=== PATIENT | female | born 1985 | race Caucasian/White ===

== ENCOUNTER 2016-11-08 22:33 | Emergency (ER) | payer OTHER ==
[2016-11-08 22:46] VITALS: BP 157/99; PULSE 78; BMI 24.1
[2016-11-08] MEDS ORDERED: IBUPROFEN 600 MG TABLET (FP) PO STA (23:23)
--- NOTE | 2016-11-08 23:25 | PDOC ---
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 The patient reports she does not know what she hit her knees on during the incident. She states she initially felt no pain due to the adrenaline [place]. However, 30 minutes after the incident her knee pain began to gradually build up. The patient reports she has always been able to bare weight on her lower extremities. She denies any loss of sensation or decreased range of motion to her feet. She denies any edema to the knees. The patient denies any other trauma or LOC. The patient denies chest pain, diaphoresis, palpitations, or shortness of breath. The patient denies any fever, chills, cough, headache, or dizziness. Allergies: NKDA Past Surgical History: None reported. Social History: Former smoker. Social ETOH use. Denies drug use. <Kristi Paniagua - Last Filed: 11/08/16 23:55> - General Chief Complaint: Injury Stated Complaint: R KNEE INJURY/[facility] Time Seen by Provider: 11/08/16 23:23 Past History - Past Medical History Suicide Attempt (Hx): No - Surgical History Appendectomy: Yes - Immunization History Immunization Up to Date: No - Psycho/Social/Smoking Cessation Hx Anxiety: No Suicidal Ideation: No Smoking History: Former smoker Have you smoked in the past 12 months: No Number of Cigarettes Smoked Daily: 10 Information on smoking cessation initiated: No Hx Alcohol Use: Yes (OCCASIONALLY) Drug/Substance Use Hx: No Substance Use Type: Alcohol <Flex Cervantes - Last Filed: 11/08/16 23:23> <Kristi Paniagua - Last Filed: 11/08/16 23:55> - Past Medical History Allergies/Adverse Reactions: Allergies Allergy/AdvReac Type Severity Reaction Status Date / Time No Known Allergies Allergy Verified 11/08/16 22:43 Home Medications: Ambulatory Orders Levonorgestrel-Ethin Estradiol [Altavera] 1 each PO DAILY 02/09/17 Review of Systems - Review of Systems Able to Perform ROS?: Yes Comments:: 11/08/16 23:53 CONSTITUTIONAL: Absent: fever, no chills, no fatigue EYES: Absent: visual changes ENT: Absent: ear pain, no sore throat CARDIOVASCULAR: Absent: chest pain, no palpitations RESPIRATORY: Absent: cough, no SOB GI: Absent: abdominal pain, no nausea, no vomiting, no constipation, no diarrhea GENITOURINARY: Absent: dysuria, no frequency, no hematuria MUSKULOSKELETAL: Present: +bilateral knee pain Absent: back pain, no arthralgia, no myalgia SKIN: Absent: rash NEURO: Absent: headache <Kristi Paniagua - Last Filed: 11/08/16 23:55> *Physical Exam - Vital Signs Last Vital Signs Temp Pulse Resp BP Pulse Ox 78 18 157/99 96 11/08/16 22:44 11/08/16 22:44 11/08/16 22:44 11/08/16 22:44 <Flex Cervantes - Last Filed: 11/08/16 23:23> - Vital Signs Last Vital Signs Temp Pulse Resp BP Pulse Ox 78 18 157/99 96 11/08/16 22:44 11/08/16 22:44 11/08/16 22:44 11/08/16 22:44 - Physical Exam Comments: 11/08/16 23:54 GENERAL: Well-appearing, well-nourished. No apparent distress. HEENT: Normocephalic, atraumatic. PERRL, EOM intact. CARDIOVASCULAR: Normal S1, S2. Regular rate and rhythm. Distal pulses are 2+ and symmetric. PULMONARY: Clear to auscultation bilaterally. ABDOMEN: Soft, non-distended, non-tender. MUSCULOSKELETAL: Small abrasion to the left knee. Mild tenderness 2 cm inferior to the patella bilaterally. Anterior/Posterior drawers test negative. Varus and valgus stress test elicits no pain. Patient retains full range of motion at the knee and rankle bilaterally. EXTREMITIES: Normal ROM in all four extremities. No gross deformities. SKIN: Warm, dry. No rash NEUROLOGICAL: No focal neurological deficits. <Kristi Paniagua - Last Filed: 11/08/16 23:55> ED Treatment Course - Medications Given in the ED: ED Medications Discontinued Medications Generic Name Dose Route Start Last Admin Trade Name Gino PRN Reason Stop Dose Admin Ibuprofen 600 mg 11/08/16 23:23 11/08/16 23:37 Motrin - PO 11/08/16 23:24 600 mg ONCE STA Administration <Kristi Paniagua - Last Filed: 11/08/16 23:55> Medical Decision Making - Medical Decision Making 11/08/16 23:24 Dr. Cervantes: The scribe's documentation has been prepared under my direction and personally reviewed by me in its entirery. I confirm that the note above accurately reflects all work, treatment, procedures, and medical decision making performed by me. <Flex Cervantes - Last Filed: 11/08/16 23:23> *DC/Admit/Observation/Transfer - Discharge Dispostion Admit: No <Flex Cervantes - Last Filed: 11/08/16 23:23> - Attestations Scribe Attestion: 11/08/16 23:55 Documentation prepared by Kristi Paniagua, acting as medical receptionist for Flex Cervantes DO. <Kristi Paniagua - Last Filed: 11/08/16 23:55> Diagnosis at time of Disposition: Knee sprain, bilateral Knee contusion Qualifiers: Encounter type: initial encounter Laterality: unspecified laterality Qualified Code(s): S80.00XA - Contusion of unspecified knee, initial encounter - Discharge Dispostion Disposition: HOME Condition at time of disposition: Stable - Patient Instructions Printed Discharge Instructions: DI for Knee Sprain
[2016-11-08] MEDS ORDERED: IBUPROFEN 600 MG TABLET (FP) PO ONE (23:29)
== END 2016-11-08 23:31 | disposition home or self-care (01) ==
LOC: JER 22:33
DX: S83.8X2A Sprain of other specified parts of left knee, initial encounter (principal); S83.8X1A Sprain of other specified parts of right knee, initial encounter; S80.02XA Contusion of left knee, initial encounter; S80.01XA Contusion of right knee, initial encounter; Y35.811A Legal intervention involving manhandling, law enforcement official injured, initial encounter; Y93.89 Activity, other specified; Y92.89 Other specified places as the place of occurrence of the external cause; Y99.0 Civilian activity done for income or pay
CPT/HCPCS: 99281-25

== ENCOUNTER 2017-05-12 08:43 | Emergency (ER) | payer OTHER ==
[2017-05-12 08:49] VITALS: BP 148/92; PULSE 78; TEMP 97.7; BMI 23.3
--- NOTE | 2017-05-12 09:04 | PDOC ---
History of Present Illness - General Chief Complaint: Injury Stated Complaint: finger injury Time Seen by Provider: 05/12/17 08:55 History Source: Patient Exam Limitations: No Limitations - History of Present Illness Initial Comments: 05/12/17 08:59 32 yr female with injury to right middle finger yesterday at work. Pt states she fell while running and cut her finger in the dirt/ground. Pt c/o pain to the finger with swelling. tetanus is UTD. Occurred: reports: yesterday Severity: reports: mild Pain Location: reports: upper extremity (right middle digit) Past History - Past Medical History Allergies/Adverse Reactions: Allergies Allergy/AdvReac Type Severity Reaction Status Date / Time No Known Allergies Allergy Verified 05/12/17 08:49 Home Medications: Ambulatory Orders Levonorgestrel-Ethin Estradiol [Altavera] 1 each PO DAILY 11/08/16 Suicide Attempt (Hx): No Other medical history: denies - Surgical History Appendectomy: Yes - Immunization History Immunization Up to Date: No - Psycho/Social/Smoking Cessation Hx Anxiety: No Suicidal Ideation: No Smoking History: Never smoked Have you smoked in the past 12 months: No Number of Cigarettes Smoked Daily: 10 Information on smoking cessation initiated: No Hx Alcohol Use: No Drug/Substance Use Hx: No Substance Use Type: None Trauma Specific PMHX - Complaint Specific PMHX Arthritis: No Back Injury: No Neck Injury: No Hx Sacro Iliac Joint Dysfunction: No Review of Systems - Review of Systems Able to Perform ROS?: Yes Is the patient limited Tongan proficient: No Constitutional: No: Symptoms Reported HEENTM: No: Symptoms Reported Respiratory: No: Symptoms reported Cardiac (ROS): No: Symptoms Reported ABD/GI: No: Symptoms Reported : No: Symptoms Reported Integumentary: Yes: See HPI *Physical Exam - Vital Signs Last Vital Signs Temp Pulse Resp BP Pulse Ox 97.7 F 78 18 148/92 99 05/12/17 08:46 05/12/17 08:46 05/12/17 08:46 05/12/17 08:46 05/12/17 08:46 - Physical Exam General Appearance: Yes: Nourished, Appropriately Dressed HEENT: positive: EOMI, JENNIE Extremity: positive: Normal Capillary Refill, Normal Range of Motion, Tender ( DIP right 3rd digit, with abrasion to the tip noted, contaminated with dirt) Integumentary: positive: Normal Color, Dry, Warm Neurologic: positive: Fully Oriented, Alert, Normal Mood/Affect, Normal Response , Motor Strength 5/5 Procedures - Additional Procedures Progress: 05/12/17 09:02 finger soaked in warm soapy water, scrubbed with surgical brush to clean Medical Decision Making - Medical Decision Making 05/12/17 09:03 cc: finger injury yesterday c/o pain at the site will soak with warm soapy water, irrigate and scrub with surgical brush to remove the dirty material tetanus is UTD 05/12/17 09:44 *DC/Admit/Observation/Transfer Diagnosis at time of Disposition: Injury, finger Qualifiers: Encounter type: initial encounter Laterality: right Qualified Code(s): S69.91XA - Unspecified injury of right wrist, hand and finger(s), initial encounter - Discharge Dispostion Disposition: HOME Condition at time of disposition: Good - Referrals Referrals: Mike Dee MD [Staff Physician] - - Patient Instructions Additional Instructions: soak finger 2-3 times a day win warm water with liquid soap keep dry and apply bacitracin once a day and cover with bandaid until healed if any worsening pain, redness drainage return to ER or follow with the hand specialist you can also follow with [facility]
[2017-05-12] MEDS ORDERED: BACITRACIN 15 GM TUBE TOPICAL OINTMENT ONE (09:34)
[2017-05-12] MEDS ORDERED: BACITRACIN 15 GM TUBE TOPICAL OINTMENT TP ONE (09:43)
== END 2017-05-12 10:07 | disposition home or self-care (01) ==
LOC: JERFT 08:43
DX: S69.91XA Unspecified injury of right wrist, hand and finger(s), initial encounter (principal); W18.39XA Other fall on same level, initial encounter; Y93.02 Activity, running; Y92.9 Unspecified place or not applicable; Y35.891A Legal intervention involving other specified means, law enforcement official injured, initial encounter
CPT/HCPCS: 73140-TC-RT; 99281-25

== ENCOUNTER 2018-04-13 16:46 | Emergency (ER) | payer OTHER ==
[2018-04-13 16:50] VITALS: BP 134/79; PULSE 110; TEMP 98.7; BMI 23.3
--- NOTE | 2018-04-13 17:09 | PDOC ---
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 She is a military police officer. Her only symptoms are localized discomfort to the area. 04/13/18 17:06 Past History - Past Medical History Allergies/Adverse Reactions: Allergies Allergy/AdvReac Type Severity Reaction Status Date / Time No Known Allergies Allergy Verified 04/13/18 16:50 Home Medications: Ambulatory Orders Levonorgestrel-Ethin Estradiol [Altavera] 1 each PO DAILY 11/08/16 - Surgical History Appendectomy: Yes - Immunization History Immunization Up to Date: No - Suicide/Smoking/Psychosocial Hx Smoking History: Never smoked Have you smoked in the past 12 months: No Number of Cigarettes Smoked Daily: 10 Information on smoking cessation initiated: No Hx Alcohol Use: No Drug/Substance Use Hx: No Substance Use Type: None Review of Systems - Review of Systems Integumentary: Yes: See HPI All Other Systems: Reviewed and Negative *Physical Exam - Vital Signs Last Vital Signs Temp Pulse Resp BP Pulse Ox 98.7 F 110 H 18 134/79 99 04/13/18 16:47 04/13/18 16:47 04/13/18 16:47 04/13/18 16:47 04/13/18 16:47 - Physical Exam Comments: There is a superficial laceration about 4 cm in length on the volar aspect of the left forearm with normal surrounding skin color and temperature. There are no gross sensorimotor deficits in the upper extremity. 04/13/18 17:07 Medical Decision Making - Medical Decision Making Superficial laceration should be treated with soap and water and left open to air and remained clean and dry. 04/13/18 17:07 *DC/Admit/Observation/Transfer Diagnosis at time of Disposition: Abrasion forearm - Discharge Dispostion Disposition: HOME Condition at time of disposition: Stable Decision to Admit order: No - Referrals - Patient Instructions Printed Discharge Instructions: DI for Abrasion Additional Instructions: Return to the emergency room should he develop any pain redness swelling or drainage from the area. The area should be kept clean with soap and water and left open to air. You do not need to apply antibiotic ointments to this area. If active while at work he may cover the area with a dry sterile dressing. Follow-up with your primary care physician in one to 2 days for further evaluation and treatment options. You always have the option of returning to the emergency room should she develop any pain redness swelling or drainage that area 24 hours day 7 days a week we are here for you. - Post Discharge Activity
== END 2018-04-13 17:15 | disposition home or self-care (01) ==
LOC: JERFT 16:46
DX: S51.812A Laceration without foreign body of left forearm, initial encounter (principal); Y35.891A Legal intervention involving other specified means, law enforcement official injured, initial encounter; Y93.89 Activity, other specified; Y92.89 Other specified places as the place of occurrence of the external cause; Y99.0 Civilian activity done for income or pay
CPT/HCPCS: 99281-25

== ENCOUNTER 2018-08-09 20:43 | Emergency (ER) | payer OTHER ==
[2018-08-09 20:51] VITALS: BP 180/110; PULSE 86; TEMP 98; BMI 22.6
--- NOTE | 2018-08-09 21:12 | PDOC ---
Post Exposure HPI - General Chief Complaint: Non EmpBld/Body Flud Exposure Stated Complaint: POSSIBLE EXPOSURE Time Seen by Provider: 08/09/18 20:56 History Source: Patient Exam Limitations: No Limitations - History of Present Illness Initial Comments: 08/09/18 21:23 Patient states while working [email or web address] ,apprehended a suspect an active IVDA and handled her arm where needed an old injection site. There was no bleeding to the site, no serum/or serous purulent drainage but patient states became concerned that her hands may have been exposed. Patient states she wants striations immediately with soap, water, hand entrepreneur and some antibacterial soap at work but was still concerned about potential exposure. Patient has no open wounds, no fissures, or any areas that would constitute any mucous membrane exposure. Timing: this evening Severity: mild Exposed Location: Left: Hand(s) (hands/ fingers ) Assessing Significant Risk PEP: Yes Percutaneous Past History - Travel Traveled outside of the country in the last 30 days: No Close contact w/someone who was outside of country & ill: No - Past Medical History Allergies/Adverse Reactions: Allergies Allergy/AdvReac Type Severity Reaction Status Date / Time No Known Allergies Allergy Verified 08/09/18 20:51 Home Medications: Ambulatory Orders Levonorgestrel-Ethin Estradiol [Altavera] 1 each PO DAILY 11/08/16 COPD: No - Surgical History Appendectomy: Yes - Immunization History Immunization Up to Date: No - Suicide/Smoking/Psychosocial Hx Smoking History: Never smoked Have you smoked in the past 12 months: No Number of Cigarettes Smoked Daily: 10 Hx Alcohol Use: No Drug/Substance Use Hx: No Substance Use Type: None General Medical PMHX - Other General PMHX Arthritis: No Review of Systems - Review of Systems Able to Perform ROS?: Yes Is the patient limited Qatari proficient: Yes Constitutional: Yes: Symptoms Reported, See HPI, Malaise HEENTM: Yes: See HPI. No: Symptoms Reported Musculoskeletal: Yes: Symptoms Reported Integumentary: Yes: See HPI, Dryness. No: Symptoms Reported, Bruising, Erythema Neurological: No: Symptoms reported All Other Systems: Reviewed and Negative *Physical Exam - Vital Signs Last Vital Signs Temp Pulse Resp BP Pulse Ox 98.0 F 86 18 180/110 H 100 08/09/18 20:44 08/09/18 20:44 08/09/18 20:44 08/09/18 20:44 08/09/18 20:44 - Physical Exam General Appearance: Yes: Nourished, Appropriately Dressed. No: Apparent Distress HEENT: positive: EOMI, JENNIE, Normal ENT Inspection, TMs Normal, Pharynx Normal Neck: positive: Supple. negative: Tender Respiratory/Chest: positive: Lungs Clear Musculoskeletal: positive: Normal Inspection. negative: CVA Tenderness Extremity: positive: Normal Capillary Refill, Normal Inspection, Normal Range of Motion (no swelling, redness, abrasions, fissures, or any open wounds to hands or fingers/epionychium) Integumentary: positive: Dry, Warm, Pale Neurologic: positive: director of annual giving II-XII NML intact, Fully Oriented, Alert, Normal Mood/ Affect, Normal Response, Motor Strength 5/5 Progress Note - Progress Note Progress Note: Lengthy discussion with patient and thorough evaluation hand reveals there are no open wounds, fissures, or any areas where potential body fluids could have infiltrated. Plus with further evaluation patient denies source patient had any draining or open lesions where she became in contact. For there was no true exposure and no need for blood evaluation or treatment, with patient agreement *DC/Admit/Observation/Transfer Diagnosis at time of Disposition: Physically well but worried - Discharge Dispostion Disposition: HOME Condition at time of disposition: Stable Decision to Admit order: No - Referrals Referrals: Carlos Marshall MD [Staff Physician] - - Patient Instructions Printed Discharge Instructions: How to Handle Body Fluid Exposure -- Non- Healthcare Worker (At Home, [facility]gi Additional Instructions: Keep hands clean and moisturize to avoid any fissures or cracking
== END 2018-08-09 21:39 | disposition home or self-care (01) ==
LOC: JERFT 20:43
DX: Z77.21 Contact with and (suspected) exposure to potentially hazardous body fluids (principal); Y35.811A Legal intervention involving manhandling, law enforcement official injured, initial encounter; Y93.89 Activity, other specified; Y92.89 Other specified places as the place of occurrence of the external cause; Y99.0 Civilian activity done for income or pay
CPT/HCPCS: 99281-25

== ENCOUNTER 2018-10-25 17:27 | Emergency (ER) | payer OTHER ==
[2018-10-25 17:47] VITALS: TEMP 98.5; BMI 22.6
--- NOTE | 2018-10-25 18:23 | PDOC ---
History of Present Illness - General Chief Complaint: Chest Pain Stated Complaint: ILLNESS/[facility] Time Seen by Provider: 10/25/18 17:58 History Source: Patient - History of Present Illness Initial Comments: 10/25/18 18:22 The patient is a 33 year old female with a PMH of untreated HTN who presents to the ED c/o 1 week h/o chest pain. Pain is substernal, "pounding/punching," and intermittent. No identifiable triggering or relieving factors including exertion, breathing or movement. Denies associated shortness of breath, lightheadedness, palpitations. Notes she has been told she has high blood pressure on prior occasion by her [employer] and he stopped her control one year previous because of her high blood pressure. Tearful during exam, stating she is scared of having high blood pressure. No prior evaluation by cardiology , no primary care doctor. Familial history of HTN in father and hypotension in mother; no h/o early cardiac deaths. NKDA Surgical: appendectomy Social: 1/2 ppd for 5 years; quit three months previous, social alcohol, denies recreational drugs PMD: none - will refer to IM resident clinic As per EMR no previous evaluation in our ED for chest pain. Past History - Past Medical History Allergies/Adverse Reactions: Allergies Allergy/AdvReac Type Severity Reaction Status Date / Time No Known Allergies Allergy Verified 10/25/18 17:38 Home Medications: Ambulatory Orders Levonorgestrel-Ethin Estradiol [Altavera] 1 each PO DAILY 11/08/16 COPD: No HTN: No - Surgical History Appendectomy: Yes - Immunization History Immunization Up to Date: No - Suicide/Smoking/Psychosocial Hx Smoking History: Never smoked Have you smoked in the past 12 months: No Number of Cigarettes Smoked Daily: 10 Information on smoking cessation initiated: No Hx Alcohol Use: No Drug/Substance Use Hx: No Substance Use Type: None Review of Systems - Review of Systems Constitutional: No: Chills, Fever HEENTM: No: Blurred Vision, Hearing Loss Respiratory: No: Cough, Orthopnea, Shortness of Breath, Wheezing, Hemoptysis Cardiac (ROS): Yes: Chest Pain. No: Lightheadedness, Palpitations ABD/GI: No: Constipated, Diarrhea, Nausea, Vomiting : No: Burning, Dysuria *Physical Exam - Vital Signs Last Vital Signs Temp Pulse Resp BP Pulse Ox 98.5 F 103 H 18 195/119 H 100 10/25/18 17:39 10/25/18 17:39 10/25/18 17:39 10/25/18 17:39 10/25/18 17:39 - Physical Exam General Appearance: Yes: Other (awake, alert, intermittently tearful) HEENT: positive: Normal Voice, Hearing Grossly Normal Neck: positive: Trachea midline, Supple Respiratory/Chest: positive: Lungs Clear, Normal Breath Sounds. negative: Accessory Muscle Use, Labored Respiration Cardiovascular: positive: Regular Rhythm, S1, S2. negative: Edema, JVD, Murmur Gastrointestinal/Abdominal: positive: Normal Bowel Sounds, Soft. negative: Distended, Guarding, Rebound, Tenderness Musculoskeletal: positive: Other (no anterior chest wall tenderness) Integumentary: positive: Normal Color, Dry, Warm Moderate Sedation - Procedure Monitoring Vital Signs: Procedure Monitoring Vital Signs Temperature 98.5 F 10/25/18 17:39 Pulse Rate 103 H 10/25/18 17:39 Respiratory Rate 18 10/25/18 17:39 Blood Pressure 195/119 H 10/25/18 17:39 O2 Sat by Pulse Oximetry (%) 100 10/25/18 17:39 Heart Score/ECG Review - ECG Impressions Comment:: 10/25/18 18:28 12 lead EKG reviewed by me. Normal Sinus Rhythm, HR 84. Normal intervals, normal axis. No TRACY/STD/TWI. Non-ischemic EKG. ED Treatment Course - LABORATORY CBC & Chemistry Diagram: 10/25/18 18:25 10/25/18 18:25 - RADIOLOGY Radiology Studies Ordered: Category Date Time Status CHEST X-RAY PORTABLE* [RAD] Stat Radiology 10/25/18 18:20 Ordered Medical Decision Making - Medical Decision Making 10/25/18 18:23 33 year old female with chest pain. H/o recent (< 3 months) smoking cessation, untreated HTN. Heart Score 2 VS remarkable for HTN (195/119) and Tachycardia (HR 103). Frontal diagnosis: r /o ACS, r/o PE, MSK, costochondritis, esophageal spasm, GERD. Most likely costochondritis/MSK, however given patient's VS will obtain D-dimer in addition to Troponin x1, CXR, EKG, basic labs. 10/25/18 19:21 Troponin negative CBC, CMP unremarkable D-Dimer pending Serum negative EKG non-ischemic as documented in EKG section of EMR 10/25/18 19:24 Patient reassessed @ bedside Repeat BP 158/100 Symptomatically improved s/p Tylenol, tolerating PO intake My read of CXR shows normal costophrenic angles, no cardiomegaly, no consolidation/infiltrate. 10/25/18 19:45 D-Dimer negative ASx s/p Toradol Repeat BP 150/99 Will discharge home with PMD referral and extensive counseling on importance of establishing primary for evaluation of HTN. Clinical Impression: MSK vs. costochondritis I discussed the physical exam findings, ancillary test results and final diagnoses with the patient. I answered all of the patient's questions. The patient was satisfied with the care received and felt comfortable with the discharge plan and treatment plan. The patient will return to the Emergency Department with any new, persistent or worsening symptoms. *DC/Admit/Observation/Transfer Diagnosis at time of Disposition: Atypical chest pain - Discharge Dispostion Disposition: HOME Condition at time of disposition: Good Decision to Admit order: No - Referrals Referrals: Carlos Marshall MD [Staff Physician] - - Patient Instructions Printed Discharge Instructions: DI for Atypical Chest Pain Additional Instructions: You were evaluated today for your chest pain. Your labs, EKG and CXR showed no concerning findings. At this time you are safe for discharge home. Make a follow-up appointment with a primary care doctor (referral information provided) or you can call your insurance company for a list of doctors to be evaluated for your blood pressure. Your care is not complete until you follow- up with a primary care doctor. Return to the Emergency Department for any new/worsening/concerning findings. - Post Discharge Activity
[2018-10-25 18:33] LABS: EOS % 2.9 % (0-4.5); HEMATOCRIT 36.7 % (32.4-45.2); LYMPH % 25.1 % (8-40); MCH 32.9 pg (25.7-33.7); MCHC 35.6 g/dl (32.0-36.0); MEAN CELL VOLUME 92.4 fl (80-96); MEAN PLT VOLUME 8.6 fl (7.5-11.1); MONO % 9.1 % (3.8-10.2); NEUT % 61.9 % (42.8-82.8); PLATELET COUNT 246 K/MM3 (134-434); RBC 3.97 M/mm3 (3.60-5.2); RDW 12.5 % (11.6-15.6); WHITE BLOOD COUNT 6.4 K/mm3 (4.0-10.0)
[2018-10-25 18:57] LABS: INR 0.97 (0.83-1.09); PROTHROMBIN TIME (PATIENT) 11.4 SEC (9.7-13.0)
[2018-10-25 18:59] VITALS: BP 154/101; PULSE 66
[2018-10-25 19:00] LABS: ACTIVATED PTT 30.5 SECONDS (25.2-36.5)
[2018-10-25 19:09] LABS: ALBUMIN 4.7 g/dl (3.4-5.0); ALK PHOS 54 U/L (45-117); ANION GAP 10 MMOL/L (8-16); BILIRUBIN,TOTAL 0.7 mg/dL (0.2-1); BLOOD UREA NITROGEN 12 mg/dL (7-18); CALCIUM 9.2 mg/dL (8.5-10.1); CHLORIDE 102 mmol/L (98-107); CO2 26 mmol/L (21-32); CREATININE 0.7 mg/dL (0.55-1.3); GLUCOSE,RANDOM 97 mg/dL (74-106); POTASSIUM 3.6 mmol/L (3.5-5.1); SGOT/AST 40 U/L (15-37); SGPT/ALT 31 U/L (13-61); SODIUM 138 mmol/L (136-145)
--- NOTE | 2018-10-25 19:24 | PDOC ---
Attending Attestation - Resident Resident Name: Neeta Plata - ED Attending Attestation I have performed the following: I have examined & evaluated the patient, The case was reviewed & discussed with the resident, I agree w/resident's findings & plan, Exceptions are as noted - Medical Decision Making 10/25/18 19:31 A portion of this note was documented by scribe services under my direction. I have reviewed the details of the note, within reason, and agree with the documentation with the following case summary and management plan written by me. Patient treated in the ED. Nursing notes are reviewed and incorporated into the medical decision-making. Vital signs reviewed. Peripheral IV access obtained by the nurse, laboratory studies are drawn and sent, reviewed and interpreted by myself. Vital Signs Temp Pulse Resp BP Pulse Ox 98.5 F 66 18 154/101 H 100 10/25/18 17:39 10/25/18 18:58 10/25/18 18:58 10/25/18 18:58 10/25/18 18:58 This is a 33-year-old female patient with no past medical history. The patient reports that she's been developing this midsternal chest pain partially when she was her best. The patient is a [employer]. She is unsure of any increasing exercise. Denies exertional component. Denies shortness of breath. Patient reports a palpation of midsternal chest reports his the pain. The patient did not take any medications. She was started get anxious that it was not getting better so came to the ER. She reported that the symptoms were persistent for one week. Denies any concurrent use of oral contraceptive pills and denies any prior history of LA or family history. Has a prior smoking history but no other problems. The patient's chest pain is certainly atypical for coronary artery disease. Patient likely has low risk for pulmonary embolus. Troponin is negative. D- dimer is pending. If the d-dimer is negative, and the patient's workup is unremarkable, the patient to be discharged home. The patient could have an underlying history of hypertension. However, the patient will need follow-up as an outpatient. We'll make sure that she is arrange to have one. 10/25/18 19:38 CBC, BMP 10/25/18 18:25 10/25/18 18:25 CMP Sodium 138 mmol/L (136-145) 10/25/18 18:25 Potassium 3.6 mmol/L (3.5-5.1) 10/25/18 18:25 Chloride 102 mmol/L (98-107) 10/25/18 18:25 Carbon Dioxide 26 mmol/L (21-32) 10/25/18 18:25 Anion Gap 10 MMOL/L (8-16) 10/25/18 18:25 BUN 12 mg/dL (7-18) 10/25/18 18:25 Creatinine 0.7 mg/dL (0.55-1.3) 10/25/18 18:25 Creat Clearance w eGFR > 60 (>60) 10/25/18 18:25 Random Glucose 97 mg/dL (74-106) 10/25/18 18:25 Calcium 9.2 mg/dL (8.5-10.1) 10/25/18 18:25 Total Bilirubin 0.7 mg/dL (0.2-1) 10/25/18 18:25 AST 40 U/L (15-37) H 10/25/18 18:25 ALT 31 U/L (13-61) 10/25/18 18:25 Alkaline Phosphatase 54 U/L (45-117) 10/25/18 18:25 Creatine Kinase 88 U/L (26-192) 10/25/18 18:25 Troponin I < 0.02 ng/ml (0.00-0.05) 10/25/18 18:25 Total Protein 8.0 g/dl (6.4-8.2) 10/25/18 18:25 Albumin 4.7 g/dl (3.4-5.0) 10/25/18 18:25 Serum , Qual Negative 10/25/18 18:25 Chest xray reviewed by me, pending official radiology read. No acute findings. <Johnathon Anderson - Last Filed: 10/25/18 19:38> - HPI HPI: 10/25/18 19:37 The patient is a 33 year old female with a past medical history of HTN here today for evaluation of chest pain. The patient reports that her chest pain has been going on for 1 week, is intermittent, an 8/10 in severity, and is localized to substernal area. She notes no alleviating or worsening factors. Patient denies headache, lightheadedness. Denies fever, chills. Denies shortness of breath. Denies nausea, vomiting, diarrhea, abdominal pain. Denies lower extremity edema. Allergies: NKA Social history: Patient reports quitting cigarettes 3 months ago (formerly .5 pack a day for 10 years) - Physicial Exam PE: 10/25/18 19:39 GENERAL: Awake, alert, and fully oriented, in no acute distress HEAD: No signs of trauma EYES: PERRLA, EOMI, sclera anicteric, conjunctiva clear ENT: Auricles normal inspection, hearing grossly normal, nares patent. Moist mucosa NECK: Normal ROM, supple, JVD, or masses LUNGS: Breath sounds equal, clear to auscultation bilaterally. No wheezes, and no crackles HEART: Regular rate and rhythm, normal S1 and S2, no murmurs, rubs or gallops CHEST: +reproducible tenderness of the mid sternal area to palpation. ABDOMEN: Soft, nontender. No guarding, no rebound. No masses EXTREMITIES: Normal range of motion, no edema. No clubbing or cyanosis. No cords, erythema, or tenderness NEUROLOGICAL: Cranial nerves II through XII grossly intact. Normal speech, normal gait SKIN: Warm, Dry, normal turgor, no rashes or lesions noted. - Medical Decision Making 10/25/18 19:39 Documentation prepared by MONCHO Nieves, acting as medical assembler for Johnathon Anderson MD. <Howie Du - Last Filed: 10/25/18 19:39> Heart Score/ECG Review - History History: Slightly suspicious - Electrocardiogram EKG: Normal - Age Age: </= 45 - Risk Factors Based on the list above the patient has:: No risk factors known - Troponin Troponin: </= normal limit - Score Heart Score - Total: 0 #1 ECG reviewed & interpreted by me at: 18:00 10/25/18 19:23 NSR 84, no std/kvng, normal axis, normal intervals, QTC 460 msec <Johnathon Anderson - Last Filed: 10/25/18 19:38>
[2018-10-25] MEDS ORDERED: KETOROLAC TROMETHAMINE 30 MG/1 ML VIAL IVPUSH ONE (19:26)
[2018-10-25] MEDS ORDERED: KETOROLAC TROMETHAMINE 30 MG/1 ML VIAL ONE (19:31)
--- NOTE | 2018-10-26 11:12 | EKG ---
Test Reason : Blood Pressure : / mmHG Vent. Rate : 084 BPM Atrial Rate : 084 BPM P-R Int : 148 ms QRS Dur : 092 ms QT Int : 390 ms P-R-T Axes : 059 071 032 degrees QTc Int : 460 ms NORMAL SINUS RHYTHM NON-SPECIFIC INTRA-VENTRICULAR CONDUCTION DELAY WHEN COMPARED WITH ECG OF 24-SEP-2013 11:10, NO SIGNIFICANT CHANGE WAS FOUND Confirmed by DUC WALDRNO MD ([id number]) on 10/26/2018 11:11:49 AM Referred By: Confirmed By:DUC WALDRON MD
== END 2018-10-25 20:19 | disposition home or self-care (01) ==
LOC: JER 17:27
PROC: 3E0333Z Introduction of Anti-inflammatory into Peripheral Vein, Percutaneous Approach (ICD-10-PCS; principal; 2018-10-25)
DX: R07.89 Other chest pain (principal); I10 Essential (primary) hypertension
CPT/HCPCS: 36415; 71045-TC-FY; 80053; 82550; 84484; 84703; 85025; 85379; 85610; 85730; 93005; 93010; 99284-25

== ENCOUNTER 2022-07-23 16:10 | Emergency (ER) | payer BC, OTHER ==
[2022-07-23 16:15] VITALS: BP 182/95; PULSE 95; RESP 24; TEMP 99.3; BMI 24.0
[2022-07-23 17:16] LABS: EOS % 0.6 % (0-4.5); HEMATOCRIT 41.6 % (32.4-45.2); LYMPH % 22.6 % (8-40); MCH 32.9 pg (25.7-33.7); MCHC 33.7 g/dl (32.0-36.0); MEAN CELL VOLUME 97.6 fl (80-96); MEAN PLT VOLUME 8.6 fl (7.5-11.1); MONO % 6.5 % (3.8-10.2); NEUT % 69.3 % (42.8-82.8); PLATELET COUNT 121 10^3/uL (134-434); RBC 4.26 M/mm3 (3.60-5.2); RDW 12.6 % (11.6-15.6); WHITE BLOOD COUNT 3.5 K/mm3 (4.0-10.0)
[2022-07-23 17:21] LABS: CHLORIDE 95 mmol/L (98-107); SODIUM 135 mmol/L (136-145)
[2022-07-23 17:22] LABS: CALCIUM 10.2 mg/dL (8.5-10.1)
[2022-07-23 17:23] LABS: ALBUMIN 5.1 g/dl (3.4-5.0); ANION GAP 14 MMOL/L (8-16); BLOOD UREA NITROGEN 8.8 mg/dL (7-18); CO2 27 mmol/L (21-32); GLUCOSE,RANDOM 80 mg/dL (74-106); MAGNESIUM 1.5 mg/dL (1.8-2.4)
[2022-07-23 17:26] LABS: CREATININE 0.7 mg/dL (0.55-1.3); SGOT/AST 543 U/L (15-37); SGPT/ALT 165 U/L (13-61)
[2022-07-23 17:27] LABS: TOT PROT 9.1 g/dl (6.4-8.2)
[2022-07-23 17:28] LABS: BILIRUBIN,TOTAL 1.1 mg/dL (0.2-1)
[2022-07-23 17:29] LABS: ALK PHOS 81 U/L (45-117)
== END 2022-07-23 18:15 | disposition home or self-care (01) ==
LOC: JERFT 16:10
DX: R07.89 Other chest pain (principal)
CPT/HCPCS: 36415; 71046-TC-FY; 80053; 82550; 83735; 84443; 84484; 84703; 85025; 93005; 93010; 99285-25